=== PATIENT | male | born 2000 | race Two or more races ===

== ENCOUNTER → 2023-02-27 08:59 | Outpatient (CLI) | payer OTHER | END | disposition home or self-care (01) | LOC: LAB 08:59 | PROVIDERS: ATTEND Psychiatry & Neurology Psychosomatic Medicine | DX: D64.9 Anemia, unspecified (principal); E78.1 Pure hyperglyceridemia; N39.0 Urinary tract infection, site not specified; E03.9 Hypothyroidism, unspecified ==

== ENCOUNTER 2023-02-27 09:15 | Outpatient (CLI) | payer OTHER | END 2023-02-27 15:29 | disposition home or self-care (01) | LOC: RAD 09:15 | PROVIDERS: ATTEND Orthopaedic Surgery Sports Medicine | DX: M54.51 Vertebrogenic low back pain (principal); M25.561 Pain in right knee; M25.562 Pain in left knee; M76.61 Achilles tendinitis, right leg ==

== ENCOUNTER 2023-04-24 18:05 | Emergency (ER) | payer OTHER ==
[~2023-04-24] VITALS: Ht 167.6 cm; Wt 72.6 kg
[2023-04-24 20:50] LABS: HEMATOCRIT 47.9 % (39.0-48.0); MEAN CELL VOLUME 88.6 fL (80.0-100.00); MEAN CORPUSCULAR HEMOGLOBIN 29.7 pg (27.00-32.0); MEAN CORPUSCULAR HGB CONC 33.5 g/dl (32.0-36.0); PLATELET COUNT 287 K/uL (150-450); RED BLOOD COUNT 5.41 M/uL (4.00-6.00); RED CELL DISTRIBUTION WIDTH 12.8 % (11.5-14.5)
== END 2023-04-24 21:59 | disposition home or self-care (01) ==
LOC: ER 18:06 → EMR PED 18:19
PROVIDERS: Emergency Medicine
DX: J10.1 Influenza due to other identified influenza virus with other respiratory manifestations (principal); Z20.822 Contact with and (suspected) exposure to COVID-19

== ENCOUNTER 2023-09-19 22:05 | Emergency (ER) | payer OTHER ==
[~2023-09-19] VITALS: Ht 170.2 cm; Wt 67.1 kg
[2023-09-20] MEDS ORDERED: AMOX-CLAV 875-1 EACH PO (00:43)
[2023-09-20] MEDS ORDERED: CEFTRIAXONE SODIUM 1,000 MG VIAL IM ONE (00:45)
== END 2023-09-20 00:55 | disposition home or self-care (01) ==
LOC: ER 22:06
DX: H66.90 Otitis media, unspecified, unspecified ear (principal)

== ENCOUNTER 2024-02-24 06:36 | Outpatient (CLI) | payer OTHER ==
[~2024-02-24 06:36] MED LIST: AMOX-CLAV 875-1 EACH PO
[2024-02-24 07:26] LABS: PH,URINE 6.5 (5.0-8.0); URINE APPEARANCE Clear; URINE BILIRRUBIN Negative (NEGATIVE); URINE BLOOD Negative; URINE COLOR Yellow; URINE GLUCOSE Negative (NEGATIVE); URINE KETONE Negative (NEGATIVE); URINE LEUKOCYTE Negative; URINE NITRATE Negative; URINE PROTEIN Negative (NEGATIVE); URINE UROBILINOGEN 0.2 E.U./dl
[2024-02-24 07:30] LABS: URINE RBC 2.2 uL (0.0-20.8)
[2024-02-24 07:56] LABS: HEMATOCRIT 43.6 % (39.0-48.0); HEMOGLOBIN 15.1 g/dL (13-16.00); MEAN CELL VOLUME 88.4 fL (80.0-100.00); MEAN CORPUSCULAR HEMOGLOBIN 30.5 pg (27.00-32.0); MEAN CORPUSCULAR HGB CONC 34.5 g/dl (32.0-36.0); PLATELET COUNT 297 K/uL (150-450); RED BLOOD COUNT 4.94 M/uL (4.00-6.00); RED CELL DISTRIBUTION WIDTH 13.7 % (11.5-14.5)
[2024-02-24 08:15] LABS: URINE BACTERIA 3.7 uL (0.0-1933); URINE EPITHELIAL CELLS 0.9 uL (0.0-38.8)
[2024-02-24 08:21] LABS: ALBUMIN 3.9 gm/dL (3.4-5.0); BILIRUBIN TOTAL 0.29 mg/dL (0.3-1.2); CALCIUM 9.2 mg/dL (8.5-10.1); CHOL HDL RATIO 2.7 (0-5.0); CREATININE SERUM 0.71 mg/dL (0.70-1.30); GFR 140.05; GLOBULINA 3.1 G/DL (2.4-3.5); POTASSIUM 3.82 mEq/L (3.5-5.1); T4 TOTAL 6.23 UG/DL (4.5-12.1); TSH 0.683 uIU/mL (0.358-3.74)
[2024-02-24 12:03] LABS: T3 TOTAL 1.31 ng/ml (0.846-2.02); VITAMIN D3 25 HYDROXY 21.96 ng/ml (30-120)
== END 2024-02-24 06:37 | disposition home or self-care (01) ==
LOC: LAB 06:36
PROVIDERS: ATTEND Internal Medicine Cardiovascular Disease
DX: E78.00 Pure hypercholesterolemia, unspecified (principal); E78.5 Hyperlipidemia, unspecified; Z12.11 Encounter for screening for malignant neoplasm of colon; Z00.00 Encounter for general adult medical examination without abnormal findings; I11.9 Hypertensive heart disease without heart failure; E11.9 Type 2 diabetes mellitus without complications; E55.9 Vitamin D deficiency, unspecified

== ENCOUNTER 2024-02-24 07:35 | Outpatient (CLI) | payer OTHER | END 2024-02-24 07:39 | disposition home or self-care (01) | LOC: SONOGRAMA 07:35 | PROVIDERS: ATTEND Internal Medicine | DX: R10.13 Epigastric pain (principal); R10.11 Right upper quadrant pain ==

== ENCOUNTER 2024-02-26 06:44 | Outpatient (CLI) | payer OTHER ==
[2024-02-26 09:05] LABS: ob NEGATIVE (NEGATIVE)
[2024-02-26 09:33] LABS: FECAL LEUKOCYTES NEGATIVE (NEGATIVE)
== END 2024-02-26 06:55 | disposition home or self-care (01) ==
LOC: LAB 06:44
PROVIDERS: ATTEND Internal Medicine
DX: R19.7 Diarrhea, unspecified (principal)

== ENCOUNTER → 2024-10-29 08:09 | Outpatient (CLI) | payer OTHER ==
[2024-10-29 09:26] LABS: HEMATOCRIT 48.4 % (39.0-48.0); HEMOGLOBIN 16.7 g/dL (13-16.00); MEAN CELL VOLUME 92.8 fL (80.0-100.00); MEAN CORPUSCULAR HGB CONC 34.5 g/dl (32.0-36.0); PLATELET COUNT 293 K/uL (150-450); RED BLOOD COUNT 5.21 M/uL (4.00-6.00); RED CELL DISTRIBUTION WIDTH 13.6 % (11.5-14.5)
[2024-10-29 10:08] LABS: PH,URINE 7.5 (5.0-8.0); URINE APPEARANCE Turbid; URINE BILIRRUBIN Negative (NEGATIVE); URINE BLOOD Negative; URINE COLOR Yellow; URINE GLUCOSE Negative (NEGATIVE); URINE KETONE Negative (NEGATIVE); URINE LEUKOCYTE Negative; URINE NITRATE Negative; URINE PROTEIN Trace (NEGATIVE)
[2024-10-29 10:11] LABS: URINE EPITHELIAL CELLS 3.7 uL (0.0-38.8); URINE RBC 7.2 uL (0.0-20.8); URINE WBC 4.4 uL (0.0-23.2)
[2024-10-29 10:11] LABS: ALBUMIN 4.6 gm/dL (3.4-5.0); BILIRUBIN TOTAL 0.48 mg/dL (0.3-1.2); CALCIUM 10.1 mg/dL (8.5-10.1); CHOL HDL RATIO 2.6 (0-5.0); CREATININE SERUM 0.76 mg/dL (0.70-1.30); GFR 128.25; GLOBULINA 3.6 G/DL (2.4-3.5); POTASSIUM 3.82 mEq/L (3.5-5.1); TOTAL PROTEIN 8.2 gm/dL (6.4-8.2); TSH 0.66 uIU/mL (0.358-3.74)
[2024-10-29 10:17] LABS: URINE CAST 0.14 uL (0.0-1.40)
== END | disposition home or self-care (01) ==
LOC: LAB 08:09
DX: E21.3 Hyperparathyroidism, unspecified (principal); I10 Essential (primary) hypertension; E78.5 Hyperlipidemia, unspecified; N39.0 Urinary tract infection, site not specified; E03.9 Hypothyroidism, unspecified; E11.65 Type 2 diabetes mellitus with hyperglycemia; I11.9 Hypertensive heart disease without heart failure; B96.81 Helicobacter pylori [H. pylori] as the cause of diseases classified elsewhere; A64 Unspecified sexually transmitted disease

== ENCOUNTER 2024-11-01 07:55 | Outpatient (CLI) | payer OTHER ==
[2024-11-01 09:03] LABS: HEMATOCRIT 46.8 % (39.0-48.0); HEMOGLOBIN 15.7 g/dL (13-16.00); MEAN CELL VOLUME 94.5 fL (80.0-100.00); MEAN CORPUSCULAR HEMOGLOBIN 31.8 pg (27.00-32.0); MEAN CORPUSCULAR HGB CONC 33.7 g/dl (32.0-36.0); PLATELET COUNT 291 K/uL (150-450); RED BLOOD COUNT 4.95 M/uL (4.00-6.00); RED CELL DISTRIBUTION WIDTH 13.4 % (11.5-14.5)
[2024-11-01 09:38] LABS: ALBUMIN 4.2 gm/dL (3.4-5.0); BILIRUBIN TOTAL 0.47 mg/dL (0.3-1.2); CALCIUM 9.5 mg/dL (8.5-10.1); CREATININE SERUM 0.71 mg/dL (0.70-1.30); GFR 138.73; GLOBULINA 3.1 G/DL (2.4-3.5); POTASSIUM 4.06 mEq/L (3.5-5.1); TOTAL PROTEIN 7.3 gm/dL (6.4-8.2)
[2024-11-01 11:08] LABS: FECAL LEUKOCYTES NEGATIVE (NEGATIVE)
== END 2024-11-01 07:59 | disposition home or self-care (01) ==
LOC: LAB 07:55
PROVIDERS: ATTEND Internal Medicine
DX: A09 Infectious gastroenteritis and colitis, unspecified (principal)

== ENCOUNTER 2024-11-01 08:42 | Outpatient (CLI) | payer OTHER | END 2024-11-01 08:46 | disposition home or self-care (01) | LOC: SONOGRAMA 08:42 | PROVIDERS: ATTEND General Practice | DX: R10.10 Upper abdominal pain, unspecified (principal) ==

== ENCOUNTER → 2025-03-27 07:14 | Outpatient (CLI) | payer OTHER | END | disposition home or self-care (01) | LOC: NUCLEAR 07:00 | PROVIDERS: ATTEND Internal Medicine | DX: R10.13 Epigastric pain (principal); R11.0 Nausea ==